=== PATIENT | male | born 1995 ===

== ENCOUNTER 2017-10-02 18:55 | Emergency (ER) | payer SELFPAY ==
[2017-10-02 19:29] LABS: RBC URINE < 1 /hpf (0-3); URINE BILIRUBIN NEGATIVE (NEGATIVE); URINE BLOOD NEGATIVE (NEGATIVE); URINE COLOR Yellow (YELLOW); URINE GLUCOSE (UA) NORMAL (Normal); URINE KETONE NEGATIVE (NEGATIVE); URINE LEUKOCYTE ESTERASE NEG Leu/uL (Negative); URINE PROTEIN NEGATIVE (NEGATIVE); URINE UROBILINOGEN NORMAL mg/dL (0.2-1.0); WBC URINE < 1 /hpf (0-5)
[2017-10-02 19:36] VITALS: BP 122/81; PULSE 69; RESP 18; TEMP 97.9; O2SAT 100
--- NOTE | 2017-10-02 19:39 | C.PDOC ---
History Of Present Illness Tulio Haider is a 22 y/o male presenting for evaluation of diffuse abdominal pain associated with urinary frequency and pain on urination, gradually developing for the past 5 days. Patient states he has been taking amoxicillin 500 mg every 8 hours, given by mother, without any significant improvement. Otherwise, denies any fever, chills, sore throat, vomiting, or diarrhea. Denies penile discharge or lesions, or testicular pain. Time Seen by Provider: 10/02/17 19:08 Chief Complaint (Nursing): Male Genitourinary History Per: Patient History/Exam Limitations: no limitations Onset/Duration Of Symptoms: Days (x 5) Current Symptoms Are (Timing): Still Present Associated Symptoms: Urinary Symptoms Past Medical History Reviewed: Historical Data, Nursing Documentation, Vital Signs Vital Signs: Last Vital Signs Temp 97.9 F 10/02/17 19:36 Pulse 69 10/02/17 19:36 Resp 18 10/02/17 19:36 BP 122/81 10/02/17 19:36 Pulse Ox 100 10/02/17 20:10 Family History: States: Unknown Family Hx - Social History Hx Alcohol Use: No Hx Substance Use: No - Immunization History Hx Tetanus Toxoid Vaccination: No Hx Influenza Vaccination: No Hx Pneumococcal Vaccination: No Review Of Systems Except As Marked, All Systems Reviewed And Found Negative. Constitutional: Negative for: Fever, Chills ENT: Negative for: Throat Pain Gastrointestinal: Positive for: Abdominal Pain (diffuse). Negative for: Vomiting, Diarrhea Genitourinary: Positive for: Dysuria, Frequency. Negative for: Penile Discharge (and lesions), Rash, Other (testicular pain) Physical Exam - Physical Exam Appears: Well, Non-toxic, No Acute Distress Skin: Normal Color, Warm, Dry, No Rash Head: Normacephalic Eye(s): bilateral: PERRL Oral Mucosa: Moist, No Drooling Throat: No Erythema, No Drooling Neck: Supple Cardiovascular: Rhythm Regular, No Murmur, No JVD Respiratory: No Accessory Muscle Use, No Rales, No Stridor, No Wheezing Gastrointestinal/Abdominal: Bowel Sounds (normal), Soft, No Tenderness, No Distention, No Guarding, No Rebound Back: No CVA Tenderness Extremity: Normal ROM, No Pedal Edema, No Deformity Neurological/Psych: Oriented x3, Normal Speech ED Course And Treatment O2 Sat by Pulse Oximetry: 100 (RA) Pulse Ox Interpretation: Normal - CT Scan/US CT abd/pelvis Other Rad Studies (CT/US): Radiology Report Reviewed CT/US Interpretation: FINDINGS: Limitations: Motion artifact - mild. Lower thorax: No acute findings. . ABDOMEN: Liver: Unremarkable. Gallbladder and bile ducts: No calcified stones. No ductal dilation. Pancreas: Unremarkable. No ductal dilation. Spleen: No splenomegaly. Adrenals: No mass. Kidneys and ureters: Punctate calculus within LEFT kidney. No. hydronephrosis. Stomach and bowel: No definite mural thickening. No obstruction. Appendix: Normal caliber. No inflammation. . PELVIS: Bladder : Unremarkable. No stones. Reproductive: Unremarkable as visualized. . ABDOMEN and PELVIS: Intraperitoneal space: No significant fluid collection. No free air. Bones/joints: No acute fracture. Soft tissues: Unremarkable. Vasculature: Unremarkable. No aneurysm. Lymph nodes: No pathologically enlarged lymph nodes. . IMPRESSION: 1. Nonobstructing renal calculus. . Dictated By: Peng Arechiga MD. Dictated Date/Time: 10/02/172110. Signed By: Peng Arechiga MD. Date Signed: 10/02/172110 Progress Note: Ordered UA, urine culture, and chlamydia/GC labs. At 19:40, UA results review and appears normal. CT abd/pelvis r/o kidney stone. On re- evaluation, pt is asymptomatic, Tolerate po well in ED. Afebrile, hemodynamicaly stable. Non-toxic. ENT: no acute findings. Lungs: CTA B/L, BS equal B/L. Abd: benign, (-) guarding, (-) rebound, (-) localized tenderness. back: (-) CVA tenderness. CT abd/pelvis review and c/w nonobstructive calculus , left kidney. Pt advised. re.f to f/u with PMD, Urology in 2-3 days for re- eavluation. Return to ED if any worsening or new changes. Disposition Counseled Patient/Family Regarding: Studies Performed, Diagnosis, Need For Followup - Disposition Referrals: [facility] [Outside] Phong Mena MD [Staff Provider] - Disposition: HOME/ ROUTINE Disposition Time: 21:15 Condition: STABLE Additional Instructions: Encourage fluids urine strain Follow up with PMD, Urology in 2-3 days for re-evaluation. return to ED if any worsening or new changes. Instructions: Dysuria (ED), Kidney Stones (ED) Forms: [employer] (Arabic) - Clinical Impression Clinical Impression: Kidney stone, Dysuria - PA / [employer] / Resident Statement MD/DO has reviewed & agrees with the documentation as recorded. - Scribe Statement The provider has reviewed the documentation as recorded by the Scribe (Elizabeth Castano) All medical record entries made by the Scribe were at my direction and personally dictated by me. I have reviewed the chart and agree that the record accurately reflects my personal performance of the history, physical exam, medical decision making, and the department course for this patient. I have also personally directed, reviewed, and agree with the discharge instructions and disposition.
--- NOTE | 2017-10-02 21:11 | CT ---
EXAM: CT Abdomen and Pelvis Without Intravenous Contrast CLINICAL HISTORY: 22 years old, male; Pain; Abdominal pain; Other: Urinating pain; Additional info: Diffuse abdominal pain, urinary frequency TECHNIQUE: Axial computed tomography images of the abdomen and pelvis without intravenous contrast. All CT scans at this facility use one or more dose reduction techniques, viz.: automated exposure control; ma/kV adjustment per patient size (including targeted exams where dose is matched to indication; i.e. head); or iterative reconstruction technique. Coronal and sagittal reformatted images were created and reviewed. COMPARISON: No relevant prior studies available. FINDINGS: Limitations: Motion artifact - mild. Lower thorax: No acute findings. ABDOMEN: Liver: Unremarkable. Gallbladder and bile ducts: No calcified stones. No ductal dilation. Pancreas: Unremarkable. No ductal dilation. Spleen: No splenomegaly. Adrenals: No mass. Kidneys and ureters: Punctate calculus within LEFT kidney. No hydronephrosis. Stomach and bowel: No definite mural thickening. No obstruction. Appendix: Normal caliber. No inflammation. PELVIS: Bladder: Unremarkable. No stones. Reproductive: Unremarkable as visualized. ABDOMEN and PELVIS: Intraperitoneal space: No significant fluid collection. No free air. Bones/joints: No acute fracture. Soft tissues: Unremarkable. Vasculature: Unremarkable. No aneurysm. Lymph nodes: No pathologically enlarged lymph nodes. IMPRESSION: 1. Nonobstructing renal calculus.
== END 2017-10-02 21:36 | disposition home or self-care (01) ==
LOC: C.ER 18:55
DX: N20.0 Calculus of kidney (principal); R30.0 Dysuria

== ENCOUNTER 2018-07-11 15:03 | Emergency (ER) | payer OTHER ==
[2018-07-11 15:16] VITALS: RESP 18; TEMP 98.3
[2018-07-11 16:18] LABS: URINE BILIRUBIN NEGATIVE (NEGATIVE); URINE BLOOD NEGATIVE (NEGATIVE); URINE CLARITY Clear (Clear); URINE COLOR Yellow (YELLOW); URINE GLUCOSE (UA) NORMAL (Normal); URINE LEUKOCYTE ESTERASE NEG Leu/uL (Negative); URINE PROTEIN NEGATIVE (NEGATIVE); URINE UROBILINOGEN NORMAL mg/dL (0.2-1.0)
[2018-07-11 17:00] VITALS: BP 118/69; PULSE 56; O2SAT 96
--- NOTE | 2018-07-11 19:38 | C.PDOC ---
History Of Present Illness 23 year old male presents to the emergency department with complaints of mild dysuria and pain to the tip of his penis since yesterday. Patient denies discharge, trauma, hematuria, and frequency. Patient states that he was diagnosed with a kidney stone one year ago, and reports that he is sexually active. Time Seen by Provider: 07/11/18 15:21 Chief Complaint (Nursing): Male Genitourinary History Per: Patient History/Exam Limitations: no limitations Onset/Duration Of Symptoms: Days (1) Current Symptoms Are (Timing): Still Present Quality Of Discomfort: "Pain" Associated Symptoms: Urinary Symptoms (dysuria). denies: Other (penile discharge, urinary frequency, hematuria) Past Medical History Reviewed: Historical Data, Nursing Documentation, Vital Signs Vital Signs: Last Vital Signs Temp 98.3 F 07/11/18 15:13 Pulse 56 L 07/11/18 16:59 Resp 18 07/11/18 16:59 BP 118/69 07/11/18 16:59 Pulse Ox 96 07/11/18 19:40 - Medical History PMH: Kidney Stones Surgical History: No Surg Hx Family History: States: No Known Family Hx - Social History Hx Alcohol Use: Yes Hx Substance Use: No - Immunization History Hx Tetanus Toxoid Vaccination: No Hx Influenza Vaccination: No Hx Pneumococcal Vaccination: No Review Of Systems Except As Marked, All Systems Reviewed And Found Negative. Constitutional: Negative for: Fever Genitourinary: Positive for: Dysuria, Penile Pain. Negative for: Frequency, Hematuria, Penile Discharge Physical Exam - Physical Exam Appears: Non-toxic, No Acute Distress Skin: Warm, Dry Head: Atraumatic, Normacephalic Eye(s): bilateral: Normal Inspection Oral Mucosa: Moist Throat: Normal, No Erythema Neck: Normal, Supple Chest: Symmetrical, No Tenderness Cardiovascular: Rhythm Regular, No Murmur Respiratory: Normal Breath Sounds, No Rales, No Rhonchi, No Wheezing Gastrointestinal/Abdominal: Normal Exam, Soft, No Tenderness, No Guarding, No Rebound Male Genital: Normal Inspection, No Testicular Tenderness, No Testicular Swelling, No Other (genital rash) Neurological/Psych: Oriented x3, Normal Speech, Normal Cognition ED Course And Treatment O2 Sat by Pulse Oximetry: 96 (RA) Pulse Ox Interpretation: Normal Progress Note: Plan: Chlamydia/GC RNA. Urine Culture. Urinalysis. Patient was told that the STD panel was sent, and that he will not be treated at this time due to having no symptoms. Patient was told that if his results come back positive, he will receive a call back. Disposition - Disposition Referrals: [facility], [Non-Staff] - Disposition: HOME/ ROUTINE Disposition Time: 16:50 Condition: GOOD Additional Instructions: DAMIAN VAUGHN, thank you for letting us take care of you today. The emergency medical care you received today was directed at your acute symptoms. If you were prescribed any medication, please fill it and take as directed. It may take several days for your symptoms to resolve. Return to the Emergency Department if your symptoms worsen, do not improve, or if you have any other problems. Please contact your doctor or call one of the physicians/clinics you have been referred to that are listed on the Patient Visit Information form that is included in your discharge packet. Bring any paperwork you were given at discharge with you along with any medications you are taking to your follow up visit. Our treatment cannot replace ongoing medical care by a primary care provider outside of the emergency department. Thank you for allowing the [facility] team to be part of your care today. You had an STI test: It will take 48 hours for the results. Please call after 1 week if you have not heard back. Follow up with your primary care doctor in 2-3 dys for re-evaluation and further management. Instructions: Dysuria, Adult (DC) Forms: [employer] (Beninese) - Clinical Impression Clinical Impression: Dysuria - Scribe Statement The provider has reviewed the documentation as recorded by the Scribe (Melecio Myron) Provider Attestation: All medical record entries made by the Scribe were at my direction and personally dictated by me. I have reviewed the chart and agree that the record accurately reflects my personal performance of the history, physical exam, medical decision making, and the department course for this patient. I have also personally directed, reviewed, and agree with the discharge instructions and disposition.
== END 2018-07-11 17:00 | disposition home or self-care (01) ==
LOC: C.ER 15:03
DX: R30.0 Dysuria (principal)